=== PATIENT | male | born 1990 | race Two or more races ===

== ENCOUNTER → 2020-08-24 | Emergency (ER) | payer OTHER ==
[~2020-08-24] VITALS: Ht 175.3 cm; Wt 102.5 kg
[~2020-08-24] MED LIST: AMOX1TAB5 PO
== END | disposition home or self-care (01) ==
LOC: ER 11:31
DX: L03.012 Cellulitis of left finger (principal); L02.512 Cutaneous abscess of left hand; B37.89 Other sites of candidiasis; B96.89 Other specified bacterial agents as the cause of diseases classified elsewhere